=== PATIENT | female | born 1970 ===

== ENCOUNTER 2024-10-13 05:30 | Day surgery (SDC) | payer OTHER ==
[2024-10-08 10:22] LABS: PH,URINE 5.5 (5.0-8.0); URINE APPEARANCE Clear; URINE BILIRRUBIN Negative (NEGATIVE); URINE COLOR Yellow; URINE GLUCOSE Negative (NEGATIVE); URINE KETONE Negative (NEGATIVE); URINE LEUKOCYTE Negative; URINE NITRATE Negative; URINE PROTEIN Negative (NEGATIVE); URINE UROBILINOGEN 0.2 E.U./dl
[2024-10-08 10:24] LABS: URINE BACTERIA 117.4 uL (0.0-1933); URINE EPITHELIAL CELLS 5.5 uL (0.0-38.8); URINE RBC 18.2 uL (0.0-20.8); URINE WBC 3.7 uL (0.0-23.2)
[2024-10-08 10:35] LABS: URINE CAST 0.14 uL (0.0-1.40)
[2024-10-08 10:36] LABS: URINE BLOOD TRACES
[2024-10-08 10:51] LABS: INR 0.98; PARTIAL THROMBOPLASTIN TIME 30.1 SECONDS (22.0-34.0); PROTHROMBIN TIME 10.7 SECONDS (9.0-11.5)
[2024-10-08 10:54] VITALS: BP 116/72
[2024-10-08 11:08] LABS: ALBUMIN 3.7 gm/dL (3.4-5.0); BILIRUBIN TOTAL 0.71 mg/dL (0.3-1.2); CALCIUM 9.2 mg/dL (8.5-10.1); CREATININE SERUM 0.63 mg/dL (0.55-1.02); GFR 97.75; GLOBULINA 3.4 G/DL (2.4-3.5); POTASSIUM 4.58 mEq/L (3.5-5.1); TOTAL PROTEIN 7.1 gm/dL (6.4-8.2)
[2024-10-08 11:17] LABS: HEMATOCRIT 40.2 % (36.0-45.00); HEMOGLOBIN 13.7 g/dL (12.0-15.00); MEAN CELL VOLUME 91.1 fL (80.00-100.00); MEAN CORPUSCULAR HGB CONC 34.1 g/dl (32.0-36.0); PLATELET COUNT 347 K/uL (150-450); RED BLOOD COUNT 4.41 M/uL (4.00-6.00); RED CELL DISTRIBUTION WIDTH 12.4 % (11.5-14.5)
[~2024-10-13] VITALS: Ht 149.9 cm; Wt 52.6 kg
[2024-10-13] MEDS ORDERED: POVIDONE-IODINE 118 ML BOTT TOP ONE (12:51)
[2024-10-13] MEDS ORDERED: DEXAMETHASONE SODIUM PHOSP/PF 10 MG/ML VIAL ONE (13:23)
[2024-10-13] MEDS ORDERED: ONDANSETRON HCL 2 MG/ML VIAL IV ONE (14:15)
[2024-10-13] MEDS ORDERED: KETOROLAC TROMETHAMINE 30 MG VIAL IV ONE (14:15)
== END 2024-10-13 20:40 | disposition home or self-care (01) ==
LOC: CIR.AMB 05:30
PROVIDERS: ATTEND Obstetrics & Gynecology
DX: N95.0 Postmenopausal bleeding (principal); N84.0 Polyp of corpus uteri; E11.9 Type 2 diabetes mellitus without complications